=== PATIENT | female | born 1960 | race Caucasian/White ===

== ENCOUNTER 2017-09-03 11:14 | Emergency (ER) | payer OTHER ==
[~2017-09-03] VITALS: Ht 167.6 cm; Wt 77.6 kg
[2017-09-03 11:29] VITALS: BP 142/75; Ht 167.6 cm; Wt 77.6 kg
== END 2017-09-03 13:10 | disposition left against medical advice (07) ==
LOC: ED 11:14
DX: Z53.21 Procedure and treatment not carried out due to patient leaving prior to being seen by health care provider (principal)